=== PATIENT | male | born 1995 | race Two or more races ===

== ENCOUNTER 2024-07-07 00:26 | Emergency (ER) | payer BC ==
[~2024-07-07] VITALS: Ht 172.7 cm; Wt 74.8 kg
[2024-07-07] MEDS ORDERED: ALBU8HFA4 (01:20)
[2024-07-07] MEDS: LIDOCAINE HCL 2% 20 ML VIAL TP ONE (02:22)
[2024-07-07] MEDS ORDERED: NEOMY/BACITRA/POLYMYXIN B OINT UD PACKET TP ONE (02:26)
[2024-07-07] MEDS ORDERED: TDAP DIPH,PERTUSS,TET VAC/PF 0.5 ML DISP.SYRIN IM ONE (02:27)
[2024-07-07] MEDS: NEOMY/BACITRA/POLYMYXIN B OINT UD PACKET TP ONE (02:32)
[2024-07-07] MEDS: TDAP DIPH,PERTUSS,TET VAC/PF 0.5 ML DISP.SYRIN IM ONE (02:33)
[2024-07-07 03:05] VITALS: BP 128/77; TEMP 98; O2SAT 98
== END 2024-07-07 02:50 | disposition home or self-care (01) ==
LOC: ER 00:26 → EDSEX 00:26 → EDBD 00:26 → ER 02:50
DX: S61.211A Laceration without foreign body of left index finger without damage to nail, initial encounter (principal); S61.412A Laceration without foreign body of left hand, initial encounter; X99.1XXA Assault by knife, initial encounter; Y93.89 Activity, other specified; Y92.89 Other specified places as the place of occurrence of the external cause; Y99.8 Other external cause status
CPT/HCPCS: 90715; A4606; A4663